=== PATIENT | female | born 1985 | race Caucasian/White ===

== ENCOUNTER 2016-12-18 20:11 | Emergency (ER) | payer MEDICAID ==
[~2016-12-18] VITALS: Ht 170.2 cm; Wt 66.5 kg
[~2016-12-18 20:11] MED LIST: IBUP-1222 PO; PREN1TAB28 PO
[2016-12-18 21:07] LABS: BLOOD UREA NITROGEN 10 mg/dL (7-18)
[2016-12-18 21:33] LABS: PATH.CAST-FLAG NOT PRESENT; SPERM-FLAG NOT PRESENT; SRC-FLAG NOT PRESENT; XTAL-FLAG NOT PRESENT; YLC-FLAG NOT PRESENT
[2016-12-18 21:39] VITALS: BP 104/64
== END 2016-12-18 22:17 | disposition home or self-care (01) ==
LOC: ED 22:03
DX: O03.9 Complete or unspecified spontaneous abortion without complication (principal); Z3A.08 8 weeks gestation of pregnancy
CPT/HCPCS: 36415; 76830; 80048; 81001; 82040; 84702; 85025; 86901

== ENCOUNTER 2017-09-16 17:50 | Inpatient (IN) | payer BC, OTHER ==
[~2017-09-16] VITALS: Ht 170.2 cm; Wt 80.9 kg
[2017-09-16 18:00] VITALS: BP 106/64
[2017-09-16] MEDS ORDERED: MONT10TA6 PO (18:33)
[2017-09-16] MEDS ORDERED: OXYTOCIN 30U/ 0.9% NaCL 500ML 500 ML IV ONE (18:35)
[2017-09-16] MEDS ORDERED: OXYTOCIN 30U/ 0.9% NaCL 500ML 500 ML IV PRN (18:35)
[2017-09-16] MEDS: D5%-LACTATED RINGERS 1,000 ML IV SCH (18:35)
[2017-09-16] MEDS ORDERED: OXYTOCIN 30U/ 0.9% NaCL 500ML 500 ML ONE (18:47)
[2017-09-16] MEDS ORDERED: LIDOCAINE 1%, 20ML ONE (18:48)
[2017-09-16] MEDS ORDERED: MISOPROSTOL 200 MCG TABLET ONE (18:48)
[2017-09-16] MEDS ORDERED: FENTANYL PF 100 MCG/2ML IV PRN (19:00)
[2017-09-16] MEDS ORDERED: ONDANSETRON 2MG/ML, 2ML IVPush PRN (19:00)
[2017-09-16] MEDS ORDERED: FENTANYL PF 100 MCG/2ML IVPush PRN (19:00)
[2017-09-16] MEDS ORDERED: LACTATED RINGERS 1,000 ML IVBOLUS ONE (19:00)
[2017-09-16] MEDS: PLEASE ENTER HEIGHT AND WEIGHT MC SCH (19:00)
[2017-09-16] MEDS ORDERED: CALCIUM CARBONATE 500 MG TAB.CHEW PO PRN (19:00)
[2017-09-16 19:06] LABS: BASOPHILS # (AUTO) 0.08 x10^3/uL (0-0.1); BASOPHILS % (AUTO) 1 % (0-1); EOSINOPHILS # (AUTO) 0.26 x10^3/uL (0-0.4); EOSINOPHILS % (AUTO) 2 % (1-7); LYMPHOCYTES # (AUTO) 2.42 x10^3/uL (1-3.4); LYMPHOCYTES % (AUTO) 21 % (22-44); MD NO; MEAN CORPUSCULAR HEMOGLOBIN 28.6 pg (27.0-34.8); MEAN CORPUSCULAR HGB CONC 33.9 g/dL (32.4-35.8); MEAN CORPUSCULAR VOLUME 84.3 fL (80-100); MEAN PLATELET VOLUME 7.6 fL (7.4-10.4); MONOCYTES # (AUTO) 0.89 x10^3/uL (0.2-0.8); MONOCYTES % (AUTO) 8 % (2-9); NEUTROPHILS # (AUTO) 8.02 x10^3/uL (1.8-6.8); NEUTROPHILS % (AUTO) 69 % (42-75); PLATELET COUNT 326 x10^3/uL (130-400); RED BLOOD COUNT 3.84 x10^6/uL (3.82-5.3); RED CELL DISTRIBUTION WIDTH 14.4 % (9.6-15.2)
[2017-09-16] MEDS: LACTATED RINGERS 1,000 ML IV SCH (19:11)
[2017-09-16 19:37] VITALS: BP 106/64
[2017-09-16] MEDS ORDERED: BUPIVACAINE 0.25% ONE ×2 (21:27→22:11)
[2017-09-16] MEDS ORDERED: FENTANYL/BUPIV./NS/PF 250 ML EPIDCONT ONE (21:27)
[2017-09-17] MEDS ORDERED: FENTANYL/BUPIV./NS/PF 250 ML EPIDCONT SCH (00:17)
[2017-09-17] MEDS ORDERED: LACTATED RINGERS 1,000 ML IV SCH (00:17)
[2017-09-17] MEDS ORDERED: LACTATED RINGERS 1,000 ML IVBOLUS PRN (00:30)
[2017-09-17] MEDS: LACTATED RINGERS 1,000 ML IV SCH (00:49)
[2017-09-17] MEDS: D5%-LACTATED RINGERS 1,000 ML IV SCH (02:35)
[2017-09-17] MEDS ORDERED: NEWBORN KIT ONE (02:45)
[2017-09-17] MEDS ORDERED: MISOPROSTOL 200 MCG TABLET PO PRN (03:00)
[2017-09-17] MEDS ORDERED: CALCIUM CARBONATE 500 MG TAB.CHEW PO PRN (03:00)
[2017-09-17] MEDS: PLEASE ENTER HEIGHT AND WEIGHT MC SCH (03:00)
[2017-09-17] MEDS ORDERED: MAGNESIUM HYDROXIDE 8%, 30ML UDC PO PRN (03:00)
[2017-09-17] MEDS ORDERED: DOCUSATE 100 MG CAPSULE PO PRN (03:00)
[2017-09-17] MEDS ORDERED: OXYcodone/APAP 5/325MG TABLET PO PRN (03:00)
[2017-09-17] MEDS ORDERED: RHOGAM FROM BLOOD BANK 1 NOTE EA IM/IV ONE (03:00)
[2017-09-17] MEDS ORDERED: OXYcodone IR 5MG TABLET PO PRN (03:00)
[2017-09-17] MEDS ORDERED: DIPH,PERTUSS(ACELL),TET VAC/PF NC IM-VACC PRN (03:00)
[2017-09-17] MEDS ORDERED: MEASLES,MUMPS&RUBELLA VACC/PF 0.5 ML SQ PRN (03:00)
[2017-09-17] MEDS ORDERED: ONDANSETRON 2MG/ML, 2ML IV PRN (03:00)
[2017-09-17] MEDS ORDERED: IBUPROFEN 600 MG TABLET ONE (04:04)
[2017-09-17] MEDS: IBUPROFEN 600 MG TABLET PO PRN ×4 (04:05→23:10)
[2017-09-17] MEDS ORDERED: OXYTOCIN 30U/ 0.9% NaCL 500ML 500 ML ONE (04:33)
[2017-09-17] MEDS: OXYTOCIN 30U/ 0.9% NaCL 500ML 500 ML IV SCH ×3 (04:36→22:45)
[2017-09-17 05:15] VITALS: BP 115/67
[2017-09-17 08:03] VITALS: BP 111/65
[2017-09-17] MEDS: PRENATAL VIT/IRON/FA 1 EACH TABLET PO SCH (08:16)
[2017-09-17 10:21] LABS: MEAN CORPUSCULAR HEMOGLOBIN 27.8 pg (27.0-34.8); MEAN CORPUSCULAR HGB CONC 32.8 g/dL (32.4-35.8); MEAN CORPUSCULAR VOLUME 84.7 fL (80-100); MEAN PLATELET VOLUME 7.5 fL (7.4-10.4); PLATELET COUNT 300 x10^3/uL (130-400); RED BLOOD COUNT 3.99 x10^6/uL (3.82-5.3); RED CELL DISTRIBUTION WIDTH 14.7 % (9.6-15.2)
[2017-09-17 10:45] LABS: BASOPHILS # (AUTO) 0.03 x10^3/uL (0-0.1); BASOPHILS % (AUTO) 0 % (0-1); EOSINOPHILS # (AUTO) 0.24 x10^3/uL (0-0.4); EOSINOPHILS % (AUTO) 1 % (1-7); LYMPHOCYTES # (AUTO) 3.22 x10^3/uL (1-3.4); LYMPHOCYTES % (AUTO) 17 % (22-44); MD SCAN; MONOCYTES # (AUTO) 1.11 x10^3/uL (0.2-0.8); MONOCYTES % (AUTO) 6 % (2-9); NEUTROPHILS # (AUTO) 14.01 x10^3/uL (1.8-6.8); NEUTROPHILS % (AUTO) 75 % (42-75)
[2017-09-17 13:46] VITALS: BP 109/63
[2017-09-17 16:10] VITALS: BP 110/72
[2017-09-17 19:25] VITALS: BP 106/67
[2017-09-18 00:10] VITALS: BP 106/67
[2017-09-18 00:31] VITALS: BP 109/73
[2017-09-18] MEDS: PRENATAL VIT/IRON/FA 1 EACH TABLET PO SCH (07:32)
[2017-09-18] MEDS: IBUPROFEN 600 MG TABLET PO PRN (07:32)
== END 2017-09-18 11:05 | disposition home or self-care (01) | DRG 775 ==
LOC: LDOP 17:50 → LDIP 18:35 → 2NW 09-17 05:07
PROVIDERS: ADMIT Obstetrics & Gynecology; ATTEND Obstetrics & Gynecology
PROC: 10D07Z6 Extraction of Products of Conception, Vacuum, Via Natural or Artificial Opening (ICD-10-PCS; principal; 2017-09-17)
PROC: 0KQM0ZZ Repair Perineum Muscle, Open Approach (ICD-10-PCS; 2017-09-17)
PROC: 3E033VJ Introduction of Other Hormone into Peripheral Vein, Percutaneous Approach (ICD-10-PCS; 2017-09-17)
PROC: 3E0R3BZ Introduction of Anesthetic Agent into Spinal Canal, Percutaneous Approach (ICD-10-PCS; 2017-09-17)
PROC: 00HU33Z Insertion of Infusion Device into Spinal Canal, Percutaneous Approach (ICD-10-PCS; 2017-09-17)
DX: O42.92 Full-term premature rupture of membranes, unspecified as to length of time between rupture and onset of labor (principal); J45.909 Unspecified asthma, uncomplicated; O99.52 Diseases of the respiratory system complicating childbirth; O70.1 Second degree perineal laceration during delivery; Z3A.38 38 weeks gestation of pregnancy; Z37.0 Single live birth
CPT/HCPCS: 36415; 82803; 85025; 86850; 86900; J2590; J3010; J7120

== ENCOUNTER 2018-10-29 12:22 | Emergency (ER) | payer BC, OTHER ==
[~2018-10-29] VITALS: Ht 170.2 cm; Wt 73.7 kg
[~2018-10-29 12:22] MED LIST changes: +MONT10TA6 PO
--- NOTE | 2018-10-29 13:01 | NUR ---
Pt to room from lobby.
--- NOTE | 2018-10-29 13:29 | NUR ---
First contact with pt. Pt c/o cough/sore throat. Pt seen at [facility] and PCP, took abx and is not feeling better. Pt denies fever, speaking in full sentences, resp even and unlabored, NADN. Pt positioned for comfort in bed, continuous oxygen and BP Monitors applied, all safety measures observed. POC discussed with pt. Pt denies other needs.
[2018-10-29] MEDS ORDERED: SODIUM CHLORIDE FLUSH 10ML SYR IVF ONE (13:30)
[2018-10-29 13:36] LABS: BASOPHILS # (AUTO) 0.04 x10^3/uL (0-0.1); BASOPHILS % (AUTO) 1 % (0-1); EOSINOPHILS # (AUTO) 0.33 x10^3/uL (0-0.4); EOSINOPHILS % (AUTO) 4 % (1-7); LYMPHOCYTES % (AUTO) 26 % (22-44); MD NO; MEAN CORPUSCULAR HGB CONC 32.7 g/dL (32.4-35.8); MEAN CORPUSCULAR VOLUME 85.4 fL (80-100); MEAN PLATELET VOLUME 8.4 fL (7.4-10.4); MONOCYTES # (AUTO) 0.51 x10^3/uL (0.2-0.8); MONOCYTES % (AUTO) 6 % (2-9); NEUTROPHILS # (AUTO) 5.54 x10^3/uL (1.8-6.8); NEUTROPHILS % (AUTO) 64 % (42-75); PLATELET COUNT 342 x10^3/uL (130-400); RED BLOOD COUNT 4.98 x10^6/uL (3.82-5.3); RED CELL DISTRIBUTION WIDTH 13.8 % (9.6-15.2)
[2018-10-29 13:42] LABS: ALBUMIN 4.5 g/dL (3.4-5.0); ANION GAP 5 mmol/L (5-15); CALCIUM 9.1 mg/dL (8.5-10.1); CHLORIDE 107 mmol/L (98-107); CREATININE 0.73 mg/dL (0.55-1.02)
--- NOTE | 2018-10-29 14:09 | NUR ---
Pt in CT at this time.
[2018-10-29] MEDS ORDERED: OMNIPAQUE 350 MG/ML, 100ML BOTTLE ONE (14:16)
[2018-10-29 14:41] VITALS: BP 100/56
--- NOTE | 2018-10-29 14:42 | NUR ---
Pt resting in bed, NADN, denies needs. Awaiting CT results.
== END 2018-10-29 15:22 | disposition home or self-care (01) ==
LOC: ED 14:22
DX: J02.9 Acute pharyngitis, unspecified (principal); K08.89 Other specified disorders of teeth and supporting structures
CPT/HCPCS: 36415; 70491; 80048; 82040; 85025; 86308; 87040; 99284; Q9967

== ENCOUNTER 2020-03-15 10:47 | Emergency (ER) | payer BC, OTHER ==
[~2020-03-15] VITALS: Ht 170.2 cm; Wt 72.3 kg
[2020-03-15 10:51] VITALS: BP 121/70
[2020-03-15] MEDS ORDERED: DIAZEPAM 5 MG TABLET PO ONE (11:30)
[2020-03-15] MEDS ORDERED: KETOROLAC 30 MG/1 ML IM ONE (11:30)
[2020-03-15] MEDS ORDERED: DIAZEPAM 5 MG TABLET ONE (11:31)
[2020-03-15] MEDS ORDERED: KETOROLAC 30 MG/1 ML ONE (11:31)
--- NOTE | 2020-03-15 11:58 | NUR ---
MEDICATED PER ORDERS
--- NOTE | 2020-03-15 13:02 | NUR ---
Patient/Caregiver given discharge instructions and they have confirmed that they understand the instructions. Patient ambulatory with steady gait.
== END 2020-03-15 13:10 | disposition home or self-care (01) ==
LOC: ED 12:04
DX: S16.1XXA Strain of muscle, fascia and tendon at neck level, initial encounter (principal); R94.31 Abnormal electrocardiogram [ECG] [EKG]; X58.XXXA Exposure to other specified factors, initial encounter; Y93.89 Activity, other specified; Y92.89 Other specified places as the place of occurrence of the external cause; Y99.8 Other external cause status
CPT/HCPCS: 71045; 93005; 96372; 99283; J1885